=== PATIENT | male | born 1940 | race Caucasian/White ===

== ENCOUNTER 2017-11-27 15:52 | Observation (INO) | payer MEDICARE, BC ==
[~2017-11-27 15:52] MED LIST: BAYER CHEWABLE81 MG PO; BENTYL10 MG PO; LEVAQUIN500 MG PO; PRILOSEC20 MG PO; RESTASIS EYE DR30 EA EACH EYE; TIMOPTIC 0.5 % O5 ML; TIMOPTIC 0.5 % O5 ML EACH EYE; XALATAN 0.0052.5 ML EACH EYE; ZESTRIL20 MG PO; ZIAC 5-6.25 MG1 TAB PO
[2017-11-27 15:55] VITALS: Ht 180.3 cm
[2017-11-27] MEDS ORDERED: ZYLOPRIM300 MG PO (15:58)
[2017-11-27] MEDS ORDERED: SUPER B COMPLEX (16:00)
[2017-11-27] MEDS ORDERED: CITRACAL + D E1 EACH PO (16:00)
[2017-11-27] MEDS ORDERED: ASCORBIC ACID500 MG PO (16:00)
[2017-11-27] MEDS ORDERED: MULTIPLE VITAMI1 TA1 (16:01)
[2017-11-27 16:54] LABS: APPEARANCE CLEAR (CLEAR); BILIRUBIN NEGATIVE (NEGATIVE); COLOR YELLOW (YELLOW); GLUCOSE NEGATIVE (NEGATIVE); KETONE NEGATIVE (NEGATIVE); NITRITE NEGATIVE (NEGATIVE); PROTEIN NEGATIVE (NEGATIVE); UROBILINOGEN NORMAL (NORMAL)
[2017-11-27 16:55] LABS: RED CELLS - URINE OCC /hpf (0-5); WHITE CELLS - URINE 0-5 /hpf (0-5)
[2017-11-27 16:58] LABS: BASOPHILS 0.3 % (0-2); EOSINOPHILS 3.5 % (0-7); HEMATOCRIT 51.1 % (42.0-54.0); HEMOGLOBIN 17.9 g/dL (13.5-17.5); IMMATURE GRANULOCYTES 0.1 % (0-5); LYMPHOCYTES 21.1 % (15-50); MCH 31.5 pg (26.0-34.0); MEAN PLATELET VOLUME 10.3 fL (7.4-10.4); MONOCYTES 9.4 % (2-11); NEUTROPHILS 65.6 % (40-80); PLATELET COUNT 196 10x3/uL (130-400); RBC 5.68 10x6/uL (4.20-6.10); RDW 13.4 % (11.5-14.5)
[2017-11-27 17:49] LABS: ALBUMIN 3.7 g/dL (3.4-5.0); ANION GAP 10.4 mmol/L (8-16); BILIRUBIN - TOTAL 0.46 mg/dL (0.2-1.3); CALCIUM 9.5 mg/dL (8.5-10.1); CARBON DIOXIDE 30.9 mmol/L (21.0-32.0); CREATININE - SERUM 1.3 mg/dL (0.6-1.3); POTASSIUM - SERUM 4.3 mmol/L (3.5-5.1); PROTEIN - SERUM 7.1 g/dL (6.4-8.2)
[2017-11-27 18:51] VITALS: BP 125/70
[2017-11-27] MEDS ORDERED: ZOFRAN8 MG PO (19:45)
[2017-11-27] MEDS ORDERED: NORCO 7.5/325 T1 TA1 PO (19:45)
[2017-11-27 19:55] VITALS: BP 152/96
== END 2017-11-27 19:55 | disposition home or self-care (01) ==
LOC: D.ER 15:52 → D.EDHOLD 19:29 → OBSVTIME 19:29 → D.EDHOLD 19:55
PROVIDERS: Family Medicine
DX: R10.31 Right lower quadrant pain (principal); I10 Essential (primary) hypertension

== ENCOUNTER 2018-09-06 19:58 | Inpatient (IN) | payer MEDICARE, BC ==
[~2018-09-06] VITALS: Ht 177.8 cm; Wt 81.6 kg
[~2018-09-06 19:58] MED LIST changes: +ASCORBIC ACID500 MG PO; +CITRACAL + D E1 EACH PO; +MULTIPLE VITAMI1 TA1; +NORCO 7.5/325 T1 TA1 PO; +SUPER B COMPLEX; +ZOFRAN8 MG PO; +ZYLOPRIM300 MG PO
[2018-09-06 21:37] LABS: BASOPHILS 0.1 % (0-2); EOSINOPHILS 0.5 % (0-7); HEMATOCRIT 55.8 % (42.0-54.0); HEMOGLOBIN 19.8 g/dL (13.5-17.5); IMMATURE GRANULOCYTES 0.4 % (0-5); LYMPHOCYTES 6.4 % (15-50); MCH 32.3 pg (26.0-34.0); MCHC 35.5 g/dL (31.0-37.0); MEAN PLATELET VOLUME 10.6 fL (7.4-10.4); MONOCYTES 10.4 % (2-11); NEUTROPHILS 82.2 % (40-80); PLATELET COUNT 188 10x3/uL (130-400); RBC 6.13 10x6/uL (4.20-6.10); RDW 13.9 % (11.5-14.5); WBC 19.4 10x3/uL (4.8-10.8)
[2018-09-06 21:49] LABS: INR 1.06 (0.85-1.17); PROTIME 13.3 SECONDS (11.6-15.0)
[2018-09-06 22:10] LABS: ALKALINE PHOSPHATASE 63 U/L (46-116); ALT (SGPT) 62 U/L (10-68); BILIRUBIN - TOTAL 1.46 mg/dL (0.2-1.3); CALC OSMOLALITY 276 mosm/kg (275-300); CALCIUM 9.6 mg/dL (8.5-10.1); CARBON DIOXIDE 25.2 mmol/L (21.0-32.0); CHLORIDE - SERUM 101 mmol/L (98-107); CREATININE - SERUM 2.2 mg/dL (0.6-1.3); GLUCOSE 138 mg/dL (74-106); POTASSIUM - SERUM 4.3 mmol/L (3.5-5.1); PROTEIN - SERUM 7.5 g/dL (6.4-8.2); SODIUM 137 mmol/L (136-145); UREA NITROGEN 15 mg/dL (7-18); eGFR NON AFRICAN AMERICAN 31 mL/min (90-120)
[2018-09-06 22:15] LABS: APPEARANCE CLEAR (CLEAR); BACTERIA MODERATE /hpf (NONE SEEN); BILIRUBIN NEGATIVE (NEGATIVE); COLOR YELLOW (YELLOW); GLUCOSE NEGATIVE (NEGATIVE); KETONE NEGATIVE (NEGATIVE); NITRITE NEGATIVE (NEGATIVE); PROTEIN 1+ mg/dL (NEGATIVE); UROBILINOGEN NORMAL (NORMAL); WHITE CELLS - URINE >50 /hpf (0-5)
[2018-09-06 22:27] LABS: CKMB 0.7 U/L (0.0-3.6); CREATINE KINASE 44 UL (21-232); PRO BNP 85 pg/mL (0-450)
[2018-09-06 22:28] LABS: TROPONIN-I < 0.017 ng/mL (0.000-0.060)
[2018-09-07 00:15] VITALS: BP 74/42
[2018-09-07] MEDS ORDERED: BETAGAN 0.5% OPH5 ML EACH EYE (00:32)
[2018-09-07 00:38] VITALS: BP 74/42; BMI 25.8
[2018-09-07 03:30] VITALS: BP 80/49
[2018-09-07 07:09] LABS: BASOPHILS 0.1 % (0-2); EOSINOPHILS 0.2 % (0-7); HEMATOCRIT 51.3 % (42.0-54.0); HEMOGLOBIN 17.6 g/dL (13.5-17.5); IMMATURE GRANULOCYTES 0.3 % (0-5); LYMPHOCYTES 11.9 % (15-50); MCH 31.8 pg (26.0-34.0); MCHC 34.3 g/dL (31.0-37.0); MCV 92.6 fL (80.0-100.0); MEAN PLATELET VOLUME 10.4 fL (7.4-10.4); MONOCYTES 11.9 % (2-11); NEUTROPHILS 75.6 % (40-80); PLATELET COUNT 176 10x3/uL (130-400); RBC 5.54 10x6/uL (4.20-6.10); WBC 17.4 10x3/uL (4.8-10.8)
[2018-09-07 07:36] LABS: ALBUMIN 3.3 g/dL (3.4-5.0); ANION GAP 15.5 mmol/L (8-16); BILIRUBIN - TOTAL 0.82 mg/dL (0.2-1.3); CALCIUM 8.4 mg/dL (8.5-10.1); CARBON DIOXIDE 24.7 mmol/L (21.0-32.0); POTASSIUM - SERUM 4.2 mmol/L (3.5-5.1); PROTEIN - SERUM 6.2 g/dL (6.4-8.2)
[2018-09-07 07:38] LABS: CREATININE - SERUM 3.1 mg/dL (0.6-1.3)
[2018-09-07 08:00] VITALS: BP 84/47
[2018-09-07 11:01] VITALS: BMI 25.8
[2018-09-07 12:47] VITALS: BP 101/59
[2018-09-07 19:37] VITALS: BP 94/63
[2018-09-08 05:52] VITALS: BP 120/75
[2018-09-08 07:04] LABS: BASOPHILS 0.3 % (0-2); EOSINOPHILS 1.4 % (0-7); HEMATOCRIT 45.2 % (42.0-54.0); HEMOGLOBIN 15.6 g/dL (13.5-17.5); IMMATURE GRANULOCYTES 0.3 % (0-5); LYMPHOCYTES 15.7 % (15-50); MCH 31.6 pg (26.0-34.0); MCHC 34.5 g/dL (31.0-37.0); MCV 91.7 fL (80.0-100.0); MONOCYTES 10.3 % (2-11); PLATELET COUNT 161 10x3/uL (130-400); RBC 4.93 10x6/uL (4.20-6.10); RDW 13.9 % (11.5-14.5)
[2018-09-08 07:06] LABS: WBC 10.9 10x3/uL (4.8-10.8)
[2018-09-08 07:24] LABS: ALBUMIN 2.9 g/dL (3.4-5.0); ANION GAP 13.5 mmol/L (8-16); BILIRUBIN - TOTAL 0.57 mg/dL (0.2-1.3); CARBON DIOXIDE 23.4 mmol/L (21.0-32.0); POTASSIUM - SERUM 3.9 mmol/L (3.5-5.1); PROTEIN - SERUM 5.7 g/dL (6.4-8.2)
[2018-09-08 08:45] VITALS: BP 150/85
[2018-09-08 12:00] VITALS: BP 155/84
[2018-09-08 16:30] VITALS: BP 146/82
[2018-09-08 20:31] VITALS: BP 153/89
[2018-09-08 23:21] LABS: APPEARANCE CLEAR (CLEAR); BILIRUBIN NEGATIVE (NEGATIVE); COLOR YELLOW (YELLOW); GLUCOSE NEGATIVE (NEGATIVE); KETONE NEGATIVE (NEGATIVE); NITRITE NEGATIVE (NEGATIVE); PROTEIN NEGATIVE (NEGATIVE); UROBILINOGEN NORMAL (NORMAL)
[2018-09-09 04:59] VITALS: BP 132/77
[2018-09-09 06:22] LABS: BASOPHILS 0.3 % (0-2); EOSINOPHILS 2.3 % (0-7); HEMATOCRIT 44.9 % (42.0-54.0); HEMOGLOBIN 16.1 g/dL (13.5-17.5); IMMATURE GRANULOCYTES 0.3 % (0-5); LYMPHOCYTES 14.3 % (15-50); MCH 32.3 pg (26.0-34.0); MCHC 35.9 g/dL (31.0-37.0); MCV 90.2 fL (80.0-100.0); MEAN PLATELET VOLUME 10.6 fL (7.4-10.4); MONOCYTES 9.7 % (2-11); NEUTROPHILS 73.1 % (40-80); PLATELET COUNT 168 10x3/uL (130-400); RBC 4.98 10x6/uL (4.20-6.10); RDW 13.5 % (11.5-14.5)
[2018-09-09 06:43] LABS: ALBUMIN 3.2 g/dL (3.4-5.0); ANION GAP 12.3 mmol/L (8-16); BILIRUBIN - TOTAL 0.57 mg/dL (0.2-1.3); CALCIUM 8.6 mg/dL (8.5-10.1); CARBON DIOXIDE 26.1 mmol/L (21.0-32.0); MAGNESIUM - SERUM 1.1 mg/dL (1.8-2.4); POTASSIUM - SERUM 4.4 mmol/L (3.5-5.1); PROTEIN - SERUM 5.8 g/dL (6.4-8.2)
[2018-09-09 06:44] LABS: CREATININE - SERUM 1.8 mg/dL (0.6-1.3)
[2018-09-09 09:13] VITALS: BP 176/98
[2018-09-09 13:56] VITALS: BP 166/48
[2018-09-09 16:46] VITALS: Ht 177.8 cm; Wt 81.6 kg
[2018-09-09 17:04] VITALS: BP 170/95
[2018-09-09 20:00] VITALS: BP 171/97
[2018-09-10 04:00] VITALS: BP 146/79
[2018-09-10 05:05] LABS: BASOPHILS 0.2 % (0-2); EOSINOPHILS 2.7 % (0-7); HEMATOCRIT 42.7 % (42.0-54.0); HEMOGLOBIN 15.1 g/dL (13.5-17.5); IMMATURE GRANULOCYTES 0.2 % (0-5); LYMPHOCYTES 15.9 % (15-50); MCH 31.7 pg (26.0-34.0); MCHC 35.4 g/dL (31.0-37.0); MCV 89.7 fL (80.0-100.0); MEAN PLATELET VOLUME 10.5 fL (7.4-10.4); MONOCYTES 9.4 % (2-11); NEUTROPHILS 71.6 % (40-80); PLATELET COUNT 156 10x3/uL (130-400); RBC 4.76 10x6/uL (4.20-6.10); RDW 13.5 % (11.5-14.5); WBC 9.3 10x3/uL (4.8-10.8)
[2018-09-10 05:21] LABS: ALBUMIN 2.8 g/dL (3.4-5.0); ANION GAP 14.5 mmol/L (8-16); BILIRUBIN - TOTAL 0.58 mg/dL (0.2-1.3); CALCIUM 8.3 mg/dL (8.5-10.1); CARBON DIOXIDE 23.3 mmol/L (21.0-32.0); CREATININE - SERUM 1.4 mg/dL (0.6-1.3); POTASSIUM - SERUM 3.8 mmol/L (3.5-5.1); PROTEIN - SERUM 5.8 g/dL (6.4-8.2)
[2018-09-10 05:22] LABS: MAGNESIUM - SERUM 1.6 mg/dL (1.8-2.4)
[2018-09-10 08:44] VITALS: BP 163/90
[2018-09-10] MEDS ORDERED: LISINOPRIL10 MG PO (10:26)
[2018-09-10] MEDS ORDERED: BACTRIM 400-801 TAB PO (10:27)
--- NOTE | 2018-09-10 11:57 | MORECARE ---
CASE MANAGEMENT DISCHARGE SUMMARY PATIENT: BORA POWELL UNIT: [id number] ADM DATE: 09/07/18 AGE: 78 : 39 SEX: M ROOM/BED: D.2225 AUTHOR: ESMER SHAVER PHYSICIAN: REFERRING PHYSICIAN: ROSE JO MD DATE OF SERVICE: 09/10/18 Discharge Plan Patient Name: BORA POWELL Facility: [facility] : 1940 Planned Disposition: Anticipated Discharge Date: Discharge Date: Expected LOS: Initial Reviewer: [email or web address] Initial Review Date: 09/06/2018 Generated: 09/10/18 12:57 pm Patient Name: BORA POWELL Page [id number] at 1157 All edits/amendments must be made on the electronic document DICTATION DATE: 09/10/18 1156 HOSE BUILDER: JUAN 09/10/18 1156 RPT#: [id number] DC DATE: STATUS: ADM IN [facility] [address] [place] [address] END OF REPORT
--- NOTE | 2018-09-10 12:04 | MORECARE ---
CASE MANAGEMENT DISCHARGE SUMMARY PATIENT: BORA POWELL UNIT: [id number] ADM DATE: 09/07/18 AGE: 78 : 39 SEX: M ROOM/BED: D.2225 AUTHOR: ESMER SHAVER PHYSICIAN: REFERRING PHYSICIAN: ROSE JO MD DATE OF SERVICE: 09/10/18 Discharge Plan Patient Name: BORA POWELL Facility: [facility]:[place] : 1940 Planned Disposition: Anticipated Discharge Date: Discharge Date: Expected LOS: Initial Reviewer: [email or web address] Initial Review Date: 09/06/2018 Generated: 09/10/18 1:04 pm Comments DCP- Discharge Planning Updated by [email or web address]: Kalani Lomax on 09/10/18 10:[address] Patient Name: BORA POWELL Admission Status: ER Accout number: [id number] Admission Date: 09-07-2018 : 1940 Admission Diagnosis: Attending: ROSE JO Current LOS: 3 Anticipated DC Date: Planned Disposition: Primary Insurance: MEDICARE A & B Discharge Planning Comments: CM met with patient to assess discharge planning needs. Patient denies any needs and states he is independent with his care at home. 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 IMM served and explained. Patient dc home today Metal [employer]: Kalani Lomax Coverage Notice Reviewer: [id number] - Kalani Lomax Notice Issued Date-Time: 09/10/2018 11:55 Notice Type: IM Discharge Notice Notice Delivered To: Patient Relationship to Patient: Title Insurance Sales Representative Name: Delivery Method: HAND - Hand Delivered Kacey Days: Prior Verbal Notification: Recipient Understood Notice: Yes Recipient Signature: Yes Med Rec Note Co-signed by Attending: Coverage Notice Comment: Last DP export: 09/10/18 10:57 a Patient Name: BORA POWELL Page [phone] at 1204 All edits/amendments must be made on the electronic document DICTATION DATE: 09/10/18 1204 HALL PORTER: JUAN 09/10/18 1204 RPT#: [id number] DC DATE: STATUS: ADM IN [facility] [address] [place] [address] END OF REPORT
--- NOTE | 2018-09-10 12:51 | MORECARE ---
CASE MANAGEMENT DISCHARGE SUMMARY PATIENT: BORA POWELL UNIT: [id number] ADM DATE: 09/07/18 AGE: 78 : 39 SEX: M ROOM/BED: D.2225 AUTHOR: ESMER SHAVER PHYSICIAN: REFERRING PHYSICIAN: ROSE JO MD DATE OF SERVICE: 09/10/18 Discharge Plan Patient Name: BORA POWELL Facility: [facility]:[place] : 1940 Planned Disposition: Anticipated Discharge Date: Discharge Date: 09/10/2018 Expected LOS: Initial Reviewer: [email or web address] Initial Review Date: 09/06/2018 Generated: 09/10/18 1:51 pm Comments DCP- Discharge Planning Updated by [email or web address]: Kalani Lomax on 09/10/18 10:[address] Patient Name: BORA POWELL Admission Status: ER Accout number: [id number] Admission Date: 09-07-2018 : 1940 Admission Diagnosis: Attending: ROES JO Current LOS: 3 Anticipated DC Date: Planned Disposition: Primary Insurance: MEDICARE A & B Discharge Planning Comments: CM met with patient to assess discharge planning needs. Patient denies any needs and states he is independent with his care at home. 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 IMM served and explained. Patient dc home today Broadcast Technician: Kalani Lomax Coverage Notice Reviewer: [id number] - Kalani Lomax Notice Issued Date-Time: 09/10/2018 11:55 Notice Type: IM Discharge Notice Notice Delivered To: Patient Relationship to Patient: Shank Paperer Name: Delivery Method: HAND - Hand Delivered Kacey Days: Prior Verbal Notification: Recipient Understood Notice: Yes Recipient Signature: Yes Med Rec Note Co-signed by Attending: Coverage Notice Comment: Last DP export: 09/10/18 11:04 a Patient Name: BORA POWELL Page [phone] at 1251 All edits/amendments must be made on the electronic document DICTATION DATE: 09/10/18 1251 CLAIMS VICE PRESIDENT: JUAN 09/10/18 1251 RPT#: [id number] DC DATE:09/10/18 STATUS: DIS IN [facility] [address] [place] [address] END OF REPORT
[2018-09-10 18:07] LABS: AEROBE ID Preliminary report (()); RESULT 1 Bacillus species (())
== END 2018-09-10 12:21 | disposition home or self-care (01) | DRG 871 ==
LOC: D.ER 19:58 → D.M3 22:17 → D.EDHOLD 22:17 → OBSVTIME 22:17 → D.M3 22:45 → D.MS 09-07 14:49
PROVIDERS: Family Medicine; Internal Medicine Nephrology; ADMIT Family Medicine; ATTEND Family Medicine
DX: A41.9 Sepsis, unspecified organism (principal); N17.0 Acute kidney failure with tubular necrosis; N17.9 Acute kidney failure, unspecified; N39.0 Urinary tract infection, site not specified; K21.9 Gastro-esophageal reflux disease without esophagitis; I95.9 Hypotension, unspecified

== ENCOUNTER 2018-10-01 07:15 | Day surgery (SDC) | payer MEDICARE, BC ==
[2018-09-30 14:40] LABS: HEMOGLOBIN 18.2 g/dL (13.5-17.5); MCV 91.5 fL (80.0-100.0); MEAN PLATELET VOLUME 10.4 fL (7.4-10.4); RBC 5.68 10x6/uL (4.20-6.10); RDW 13.4 % (11.5-14.5); WBC 10.2 10x3/uL (4.8-10.8)
[2018-09-30 14:58] LABS: ANION GAP 12.8 mmol/L (8-16); CALCIUM 8.9 mg/dL (8.5-10.1); CARBON DIOXIDE 25.3 mmol/L (21.0-32.0); CREATININE - SERUM 1.6 mg/dL (0.6-1.3); POTASSIUM - SERUM 4.1 mmol/L (3.5-5.1)
[~2018-10-01] VITALS: Ht 177.8 cm; Wt 85.7 kg
[~2018-10-01 07:15] MED LIST changes: +BACTRIM 400-801 TAB PO; +BETAGAN 0.5% OPH5 ML EACH EYE; +BISOPROLOL-HCTZ1 TA5 PO; +CHONDROITIN PO; -CITRACAL + D E1 EACH PO; +CITRUCEL500 MG PO; +GLUCOSAMINE PO; +LISINOPRIL10 MG PO; +OS-CAL500 MG PO; -SUPER B COMPLEX; +SUPER B COMPLEX PO; +VITAMIN D5000 UNIT PO
[2018-10-01] MEDS ORDERED: SULFAMETHOXAZOL1 TA3 PO (07:49)
[2018-10-01 08:00] VITALS: BP 147/85; Ht 177.8 cm; Wt 85.7 kg
--- NOTE | 2018-10-01 12:51 | OP ---
PATIENT NAME: BORA POWELL MEDICAL RECORD: [id number] :[birth year] LOCATION:D.OPS ADMISSION DATE: SURGEON: JORDAN OLSON MD DATE OF OPERATION: 10/01/2018 SURGEON: Jordan Olson MD ANESTHESIA: TIVA by Bryant Hare CRNA. DIAGNOSIS: Bladder outlet obstruction and an elevated PSA of 3.8 with a normal digital rectal examination. PROCEDURE: Cystoscopy, transrectal ultrasound of the prostate with prostate biopsy. FINDINGS: On cystoscopy, bilateral lateral lobe enlargement with obstruction. Single ureteral orifices bilaterally with no bladder tumors. Trabeculated bladder. There is no significant median lobe in the prostate. On transrectal ultrasound, there is a 75 gram prostate with intraprostatic stones. There were no hypoechoic areas seen. SPECIMENS: Prostate biopsy cores. BLOOD LOSS: None. CLINICAL HISTORY: This is a 78-year-old male with obstructive voiding symptoms. He was interested in having the UroLift procedure done. However, his PSA is a little high at 3.8 and on digital rectal examination some nodularity of the prostate was palpated. He comes now to have a prostate biopsy to exclude prostate cancer. As well, he will be having cystoscopy to check on the prostatic anatomy in terms of planning for the UroLift procedure. He is not allergic to any medications. He was given Ancef merchandising consultant to the OR. DESCRIPTION OF PROCEDURE: The patient was given IV sedation. He was placed in the dorsal lithotomy position and prepped and draped. Cystoscopy was performed using a 17-Malay cystoscope with 30-degree lens. There were no penile urethral strictures. The prostatic urethra was obstructive in the lateral lobes. The rest of the findings are as outlined above. The bladder was then emptied through the cystoscope sheath and the scope was removed. We then introduced the transrectal ultrasound probe into the rectum. The prostate size measurements were obtained. The prostate was quite large and almost spherical in shape. Prostate volume was estimated at 75 grams. Intraprostatic stones were seen which cause shadowing. Sextant biopsies were obtained with at least 4 cores from each sextant. Once all the specimens were obtained, the procedure was terminated. I will send the patient home today. He will see me in followup in 3 days' time to review the pathology results with him. TRANSINT:[id number] Voice Confirmation ID: [id number] DOCUMENT ID: [id number] OPERATIVE REPORT [id number] BORA POWELL, JORDAN Mccrary MD at 1251 CC: [id number] DICTATION DATE: 10/01/18 1046 FLOOR STEWARD/STEWARDESS: 10/01/18 1216 [facility] [address] [place] [address]
--- NOTE | 2018-10-01 12:57 | NUR ---
IV REMOVED INSTRUCTIONS GIVEN AND APT MADE
== END 2018-10-01 12:15 | disposition home or self-care (01) ==
LOC: D.OPS 07:15 → D.PAN 10:10 → D.OPS 10:10 → D.PAN 10:55 → D.OPS 12:00
PROVIDERS: Anesthesiology; ATTEND Urology
DX: N40.1 Benign prostatic hyperplasia with lower urinary tract symptoms (principal); N13.8 Other obstructive and reflux uropathy; N32.0 Bladder-neck obstruction; N32.89 Other specified disorders of bladder; N41.1 Chronic prostatitis; N42.31 Prostatic intraepithelial neoplasia; Z01.812 Encounter for preprocedural laboratory examination

== ENCOUNTER 2018-10-17 06:30 | Day surgery (SDC) | payer MEDICARE, BC ==
[2018-10-16 09:28] LABS: HEMOGLOBIN 18.1 g/dL (13.5-17.5); MCH 31.9 pg (26.0-34.0); MCHC 35.5 g/dL (31.0-37.0); MCV 89.9 fL (80.0-100.0); MEAN PLATELET VOLUME 10.2 fL (7.4-10.4); RBC 5.67 10x6/uL (4.20-6.10); RDW 13.7 % (11.5-14.5); WBC 9.8 10x3/uL (4.8-10.8)
[2018-10-16 09:52] LABS: ANION GAP 10.7 mmol/L (8-16); CALCIUM 10.1 mg/dL (8.5-10.1); CARBON DIOXIDE 26.5 mmol/L (21.0-32.0); CREATININE - SERUM 1.5 mg/dL (0.6-1.3); POTASSIUM - SERUM 4.2 mmol/L (3.5-5.1)
[~2018-10-17] VITALS: Ht 177.8 cm; Wt 85.7 kg
[~2018-10-17 06:30] MED LIST changes: +SULFAMETHOXAZOL1 TA3 PO
[2018-10-17 08:28] VITALS: BP 141/85; Ht 177.8 cm; Wt 85.7 kg
--- NOTE | 2018-10-17 10:20 | NUR ---
REC'D FROM SURGERY. FAMILY AT BEDSIDE. ICE WATER, COFFEE AND FL TRAY BROUGHT TO PT.
--- NOTE | 2018-10-17 10:50 | NUR ---
FAMILY AT BEDSIDE. ASKING FOR MORE PUDDING AND ICE CREAM.
--- NOTE | 2018-10-17 11:00 | NUR ---
AMBULATED TO BATHROOM. VOIDING WITHOUT DIFFICULTY. EXPLAINED TO PATIENT TO EXPECT TO SEE BLOOD AND CLOTS WHEN URINATING.
--- NOTE | 2018-10-17 11:15 | NUR ---
PT DISLODGED IV WHEN UP TO BATHROOM. IV DC'D WITH CATHETER INTACT.
--- NOTE | 2018-10-17 12:00 | NUR ---
TOLERATED DIET. WRITTEN AND VERBAL DC INST. GIVEN TO PATIENT. VERBALIZED UNDERSTANDING.
--- NOTE | 2018-10-17 12:10 | NUR ---
DC'D HOME WITH FAMILY VIA PRIVATE VEHICLE. TAKEN TO VEHICLE VIA WC. STABLE AT TIME OF DC.
--- NOTE | 2018-10-17 14:21 | OP ---
PATIENT NAME: BORA POWELL MEDICAL RECORD: [id number] :38 LOCATION:D.[facility] ADMISSION DATE: SURGEON: SCOTT OLSON MD DATE OF OPERATION: 10/17/2018 SURGEON: Scott Olson MD ANESTHESIA: TIVA by TD Ocasio CRNA DIAGNOSES: Obstructive benign prostatic hyperplasia with recurrent urinary tract infections. Transrectal ultrasound shows a 75 gram prostate. PSA is 3.8 and the biopsy is benign. IPSS is 25 and quality of life score is 5. PROCEDURE: UroLift times 4 implants. FINDINGS: Bilateral lateral lobe hyperplasia of the prostate. ESTIMATED BLOOD LOSS: Minimal. CLINICAL HISTORY: This is a 78-year-old male who has had 2 admissions to the hospital for recurrent urinary tract infections with septic shock. He is not on any prostate shrinking medications. He complains of nocturia times 3 and a weak urinary flow. Findings are as outlined above. Because of his high PSA and an abnormal MILLY with a firm left lateral lobe nodule, he had a prostate biopsy. This was benign and it showed some prostatitis also. During the prostate biopsy, I also performed cystoscopy and this showed bilateral lateral lobe hyperplasia of the prostate with no median lobe. He comes today to have the UroLift procedure done and he is not allergic to any medications. He was given Ancef career technical education teacher to the OR. DESCRIPTION OF PROCEDURE: The patient was given IV sedation. He was then placed into dorsal lithotomy position and prepped and draped. The UroLift scope was introduced. The findings are as the same as before. Two units were placed near the bladder neck about 1.5-2 cm distal to the bladder neck. They were placed at the anterior lateral sulcus of the lateral lobe of the prostate. One unit was placed on each side. On each side, it struck bone, but by relieving pressure on the needle and pulling back slightly distally the needle was able to fully deploy. Then, 2 further units were placed at the level of the verumontanum, again at the anterolateral sulcus with one unit being placed on each side. At the end of the procedure, the patient had a nice anterior urethral channel. The bladder was left partly full and the scope was removed. The patient will have a trial of voiding today. If he cannot void, then he will go home with a Azul catheter. I will see him in followup in 1 months' time. TRANSINT:[id number] Voice Confirmation ID: [id number] DOCUMENT ID: [id number] OPERATIVE REPORT [id number] BORA POWELL, SCOTT Mccrary MD at 1421 CC: [id number] DICTATION DATE: 10/17/18 1019 GYMNASTICS COACH OR INSTRUCTOR: 10/17/[address] [facility] 10/17/18 [place] [id number] [place] [id number]
== END 2018-10-17 12:10 | disposition home or self-care (01) ==
LOC: D.OPS 06:30 → D.PAN 08:45 → D.OPS 08:45
PROVIDERS: Anesthesiology; ATTEND Urology
DX: N40.1 Benign prostatic hyperplasia with lower urinary tract symptoms (principal); N13.8 Other obstructive and reflux uropathy; R35.1 Nocturia; R39.12 Poor urinary stream; Z87.440 Personal history of urinary (tract) infections; Z01.812 Encounter for preprocedural laboratory examination

== ENCOUNTER → 2018-11-15 18:30 | Outpatient (CLI) | payer MEDICARE, BC ==
[2018-10-17 08:28] VITALS: BMI 27.1
== END | disposition home or self-care (01) ==
LOC: D.LABREF 18:30
PROVIDERS: ATTEND Urology
DX: N30.00 Acute cystitis without hematuria (principal)

== ENCOUNTER → 2018-12-02 12:48 | Outpatient (CLI) | payer MEDICARE, BC ==
[2018-10-17 08:28] VITALS: BMI 27.1
== END | disposition home or self-care (01) ==
LOC: D.LABREF 12:48
PROVIDERS: ATTEND Urology
DX: D72.829 Elevated white blood cell count, unspecified (principal)

== ENCOUNTER → 2018-12-18 19:01 | Outpatient (CLI) | payer MEDICARE, BC ==
[2018-10-17 08:28] VITALS: BMI 27.1
== END | disposition home or self-care (01) ==
LOC: D.LABREF 19:01
PROVIDERS: ATTEND Urology
DX: D72.829 Elevated white blood cell count, unspecified (principal)

== ENCOUNTER → 2019-01-22 17:31 | Outpatient (CLI) | payer MEDICARE, BC ==
[2018-10-17 08:28] VITALS: BMI 27.1
== END | disposition home or self-care (01) ==
LOC: D.LABREF 17:31
PROVIDERS: ATTEND Urology
DX: D72.819 Decreased white blood cell count, unspecified (principal)

== ENCOUNTER → 2019-02-24 12:56 | Outpatient (CLI) | payer MEDICARE, BC ==
[2018-10-17 08:28] VITALS: BMI 27.1
[~2019-02-24 12:56] MED LIST changes: +BISOPROLOL-HCT1 EAC3 PO; -BISOPROLOL-HCTZ1 TA5 PO; +ELAVIL10 MG PO; +HALOBETASOL TOPICAL; +RESTASIS 0.05% EACH EYE; +VISION FORMULA 50+ PO
== END | disposition home or self-care (01) ==
LOC: D.LABREF 12:56
PROVIDERS: ATTEND Urology
DX: Z00.00 Encounter for general adult medical examination without abnormal findings (principal)

== ENCOUNTER → 2019-03-14 15:56 | Outpatient (CLI) | payer MEDICARE, BC ==
[2018-10-17 08:28] VITALS: BMI 27.1
== END | disposition home or self-care (01) ==
LOC: D.LABREF 15:56
PROVIDERS: ATTEND Urology
DX: R82.998 Other abnormal findings in urine (principal)

== ENCOUNTER 2019-04-01 08:25 | Day surgery (SDC) | payer MEDICARE, BC ==
[2019-03-31 09:56] LABS: BASOPHILS 0.5 % (0-2); EOSINOPHILS 7.5 % (0-7); HEMATOCRIT 52.9 % (42.0-54.0); HEMOGLOBIN 18.1 g/dL (13.5-17.5); IMMATURE GRANULOCYTES 0.2 % (0-5); LYMPHOCYTES 22.7 % (15-50); MCH 31.9 pg (26.0-34.0); MCHC 34.2 g/dL (31.0-37.0); MCV 93.3 fL (80.0-100.0); MEAN PLATELET VOLUME 10.5 fL (7.4-10.4); MONOCYTES 11.5 % (2-11); NEUTROPHILS 57.6 % (40-80); RBC 5.67 10x6/uL (4.20-6.10); RDW 14.8 % (11.5-14.5); WBC 9.3 10x3/uL (4.8-10.8)
[2019-03-31 10:16] LABS: ANION GAP 12.4 mmol/L (8-16); CALCIUM 10.3 mg/dL (8.5-10.1); CARBON DIOXIDE 28.2 mmol/L (21.0-32.0); CREATININE - SERUM 1.3 mg/dL (0.6-1.3); POTASSIUM - SERUM 4.6 mmol/L (3.5-5.1)
[2019-03-31 10:19] LABS: PLATELET COUNT 205 10x3/uL (130-400)
[~2019-04-01] VITALS: Ht 177.8 cm; Wt 88.5 kg
[2019-04-01 09:50] VITALS: BP 145/87; Ht 177.8 cm; Wt 88.5 kg
--- NOTE | 2019-04-01 11:28 | OP ---
PATIENT NAME: BORA POWELL MEDICAL RECORD: [id number] :[birth year] LOCATION:D.OPS ADMISSION DATE: SURGEON: JORDAN OLSON MD DATE OF OPERATION: 04/01/2019 SURGEON: Jordan Olson MD ANESTHESIA: TIVA by Bryant Hare CRNA. DIAGNOSES: Obstructive BPH with IPSS score is 12 and quality of life score of 2. PROCEDURE: UroLift times 3. FINDINGS: Obstructive lateral lobes at the apex and mid prostate. BLOOD LOSS: Minimal. CLINICAL HISTORY: This is an 79-year-old male, who had UroLift times 4 on 10/17/2018. He has a 75 gram prostate, which is benign in pathology when biopsied. In spite of the UroLift treatment, he has ongoing issues with urinary tract infections and a very slow urinary flow. I suspect that he still has residual obstruction and he comes now to have more UroLift implants placed to fully open up his urethra. He is not allergic to any medications. He was given Ancef position classification specialist to the OR. DESCRIPTION OF PROCEDURE: The patient was given IV sedation. He was placed in dorsal lithotomy position and prepped and draped. The UroLift scope was introduced. There are no penile urethral strictures. The lateral lobes are obstructive at the apex and at the mid prostatic level. The bladder neck is open. No bladder tumors were seen. At the level of the verumontanum, I can see the previous UroLift units at the anterolateral sulcus. However, the lateral lobes bulge, so that they obstruct towards the mid prostatic level in an anterior and posterior direction. At the mid prostatic level at the level of the verumontanum, I placed 1 unit on each side and this opened up the apex of the prostate. There was still some residual obstruction in the middle. I placed one unit on the right mid prostate at the mid anterior, posterior level. This opened up the mid portion of the prostatic urethra. At this point, there was a fair amount of bleeding from the UroLift passage. I was tempted to put a fourth one on the left mid prostate level, but I decided not to as the visualization was very difficult at this time. A 16-Azeri Azul catheter was inserted into the bladder and the balloon was inflated with 10 cc of sterile water. He will be going home with a Azul catheter. I will see him back in followup in 3 days' time for a voiding trial. TRANSINT:[id number] Voice Confirmation ID: [id number] DOCUMENT ID: [id number] OPERATIVE REPORT [id number] BORA POWELL, JORDAN Mccrary MD at 1128 CC: [id number] DICTATION DATE: 04/01/19 111 GUEST SERVICE REPRESENTATIVE: 04/01/19 1126 [facility] [place] [id number] [place] [id number]
== END 2019-04-01 12:05 | disposition home or self-care (01) ==
LOC: D.OPS 08:25 → D.PAN 11:00 → D.OPS 12:05
PROVIDERS: Anesthesiology; ATTEND Urology
DX: N40.1 Benign prostatic hyperplasia with lower urinary tract symptoms (principal); N13.8 Other obstructive and reflux uropathy

== ENCOUNTER → 2019-04-04 15:06 | Outpatient (CLI) | payer MEDICARE, BC ==
[2019-04-01 09:50] VITALS: BMI 27.3
== END | disposition home or self-care (01) ==
LOC: D.LABREF 15:06
PROVIDERS: ATTEND Urology
DX: N39.0 Urinary tract infection, site not specified (principal)